=== PATIENT | male | born 1965 | race Caucasian/White ===

== ENCOUNTER → 2016-11-13 | Outpatient (CLI) | payer BC ==
[2016-11-13 06:10] LABS: MEAN CORPUSCULAR VOLUME 95.9 FL (80-90); MEAN PLATELET VOLUME 9.2 FL (7.4-12.2)
[2016-11-13 06:14] LABS: BASOPHILS # (AUTO) 0.06 10*3/UL; BASOPHILS % (AUTO) 0.7 % (0-1); BILIRUBIN,URINE NEGATIVE (NEG); COLOR,URINE YELLOW; EOSINOPHILS # (AUTO) 0.21 10*3/UL; EOSINOPHILS % (AUTO) 2.5 % (0-8); GLUCOSE, URINE (UA) NEGATIVE (NEG); HEMOGLOBIN 18.8 g/dL (14.0-18.0); LYMPHOCYTES # (AUTO) 2.42 10*3/uL; MEAN CORPUSCULAR HEMOGLOBIN 33.4 PG (27-31); MEAN CORPUSCULAR HGB CONC 34.8 g/dL (33-37); MONOCYTES # (AUTO) 0.95 10*3/UL (0.3-0.8); MONOCYTES % (AUTO) 11.4 % (5-15); NEUTROPHILS # (AUTO) 4.66 10*3/UL; NEUTROPHILS % (AUTO) 55.9 % (50-80); NITRATE,URINE NEGATIVE (NEG); OCCULT BLOOD,URINE Trace-intact (NEG); PH,URINE 5.5 (5.0-8.5); PROTEIN,URINE NEGATIVE (NEG); RED BLOOD COUNT 5.63 10^6/uL (4.70-6.10); UROBILINOGEN,URINE 0.2 mg/dL (0.2)
[2016-11-13 06:15] LABS: PLATELET MORPHOLOGY COMMENT NORMAL MORPHOLOGY (NORM); RBC MORPHOLOGY COMMENT NORMAL MORPHOLOGY (NORM); WBC MORPHOLOGY COMMENT NORMAL MORPHOLOGY (NORM)
[2016-11-13 06:17] LABS: CLARITY,URINE CLEAR (CLEAR)
[2016-11-13 06:18] LABS: RBC,URINE 0-1 /hpf; URINE SAMPLE TYPE CLEAN CATCH URINE; WBC,URINE 0-1
[2016-11-13 06:21] LABS: BLOOD UREA NITROGEN 19 mg/dL (7-22); BUN/CREATININE RATIO 21.11 (6-20); CALCIUM 9.4 mg/dL (8.7-10.7); CHOL/HDL RATIO 4.94 RATIO (0-4.0); EST GLOMERULAR FILTRATION > 60 (>60 ml/min/1.73m(2)); HDL CHOLESTEROL 37 mg/dL (40-150); SERUM ALBUMIN 4.2 g/dL (3.5-4.8); SERUM CHOLESTEROL 183 mg/dL (120-200)
== END ==
LOC: LAB 05:57
PROVIDERS: ATTEND Internal Medicine
DX: D75.1 Secondary polycythemia (principal); R39.15 Urgency of urination; I10 Essential (primary) hypertension; R10.31 Right lower quadrant pain; I47.1 Supraventricular tachycardia
CPT/HCPCS: 36415; 80053; 80061; 81001; 84153; 84443; 85025